=== PATIENT | male | born 1955 | race Caucasian/White ===

== ENCOUNTER 2018-12-04 10:15 | Inpatient (IN) | payer OTHER ==
[~2018-12-04] VITALS: Ht 170.2 cm; Wt 86.2 kg
[~2018-12-04 10:15] MED LIST: CATAFLAM50 MG PO; CEFADROXIL500 MG PO; PERCOCET 5/321 UDTAB PO; VASOTEC10 MG PO; XARELTO10 MG PO
[2018-12-04] MEDS ORDERED: IBERSARTAN PO (12:37)
[2018-12-04] MEDS ORDERED: TRAMADOL HCL50 MG PO (12:37)
[2018-12-09] MEDS ORDERED: IRBESARTAN150 MG PO (09:47)
[2018-12-11] MEDS ORDERED: DUI500 PO (14:21)
[2018-12-11] MEDS ORDERED: PERCOCET 5-3251 EACH PO (14:21)
[2018-12-11] MEDS ORDERED: ELIQUIS2.5 MG PO (14:21)
== END 2018-12-11 19:30 | DRG 470 ==
LOC: SURH 12-09 07:00 → O/R 12-09 09:10 → SURG 12-09 09:10 → SURH 12-09 10:15 → SURG 12-09 16:08
PROVIDERS: ADMIT Orthopaedic Surgery
PROC: 0SR90JZ Replacement of Right Hip Joint with Synthetic Substitute, Open Approach (ICD-10-PCS; principal; 2018-12-09 07:00)
DX: M16.11 Unilateral primary osteoarthritis, right hip (principal); D62 Acute posthemorrhagic anemia; I10 Essential (primary) hypertension; I80.03 Phlebitis and thrombophlebitis of superficial vessels of lower extremities, bilateral; F10.20 Alcohol dependence, uncomplicated; Z72.0 Tobacco use; Z79.01 Long term (current) use of anticoagulants

== ENCOUNTER 2019-01-09 15:06 | Inpatient (IN) | payer OTHER ==
[~2019-01-09 15:06] MED LIST changes: +DUI500 PO; +ELIQUIS2.5 MG PO; +IBERSARTAN PO; +IRBESARTAN150 MG PO; +PERCOCET 5-3251 EACH PO; +TRAMADOL HCL50 MG PO
[2019-01-12] MEDS ORDERED: BACTRIM DS TAB1 EACH PO (10:54)
[2019-01-12] MEDS ORDERED: CIPROFLOXACIN750 MG PO (10:54)
[2019-01-12] MEDS ORDERED: VITAMIN D400 UNI2 PO (10:56)
[2019-01-12] MEDS ORDERED: CALTRATE 600+D1 EAC1 PO (13:19)
[2019-01-16] MEDS ORDERED: INTESTINEX680 M1 PO (08:58)
[2019-01-16] MEDS ORDERED: AMOX-CLAV 875-1 EACH PO (08:58)
== END 2019-01-16 11:50 | disposition home or self-care (01) | DRG 863 ==
LOC: SURH 15:06
PROVIDERS: ADMIT Orthopaedic Surgery
DX: T81.41XA Infection following a procedure, superficial incisional surgical site, initial encounter (principal); D62 Acute posthemorrhagic anemia; I82.813 Embolism and thrombosis of superficial veins of lower extremities, bilateral; B95.61 Methicillin susceptible Staphylococcus aureus infection as the cause of diseases classified elsewhere; F10.20 Alcohol dependence, uncomplicated; F17.210 Nicotine dependence, cigarettes, uncomplicated; I10 Essential (primary) hypertension; Z96.641 Presence of right artificial hip joint; Z79.01 Long term (current) use of anticoagulants